=== PATIENT | female | born 1970 | race Asian ===

== ENCOUNTER 2017-03-13 12:39 | Emergency (ER) | payer BC, OTHER ==
[2017-03-13 12:44] VITALS: BP 116/60; PULSE 58; TEMP 98.4; BMI 20.9
--- NOTE | 2017-03-13 12:45 | PDOC ---
Attending Attestation - Resident Resident Name: CavazosMaikel - ED Attending Attestation I have performed the following: I have examined & evaluated the patient, The case was reviewed & discussed with the resident, I agree w/resident's findings & plan, Exceptions are as noted - HPI HPI: 03/13/17 12:48 The patient is a 46-year-old female, with a significant past medical history of palpitations, who presents to the emergency department with approximately 28 hours of intermittent palpitations. She describes them as frequent, strong, extra beats. She denies chest pain. She denies nausea, sweating, dyspnea. She denies chest pain. She denies lower extremity paresthesias. She denies lightheadedness, loss of consciousness. 03/13/17 12:49 03/13/17 13:07 - Physicial Exam PE: 03/13/17 12:49 She is well appearing Vitals noted EKG noted with frequent PVCs, in a 2:1 ratio - Medical Decision Making 03/13/17 13:38 The patient is well-appearing and in no acute distress EKG noted Labs noted Paging cardiology Discharge Disposition - Diagnosis Heart palpitations, PVCs (premature ventricular contractions) - Discharge Dispostion Disposition: HOME Condition at time of disposition: Stable - Referrals Referrals: Lionel Bauer MD [Staff Physician] - Call tomorrow - Patient Instructions Printed Discharge Instructions: DI for Arrhythmias Additional Instructions: Your EKG shows an abnormal heartbeat known as premature ventricular contractions. Many people suffer from premature ventricular contractions. We discussed your case with a tilting head band sawyer, and they feel that it is appropriate for you to be discharged home, and for you to see them as an outpatient. They would like you to start 12.5mg of Toprol XL daily. It should improve your symptoms. Return to the emergency department immediately with ANY new, persistent or worsening symptoms. You MUST call and follow up with your doctor tomorrow. Please make sure your doctor reviews the results of your emergency department evaluation.
[2017-03-13 13:12] LABS: WHITE BLOOD COUNT 6.1 K/mm3 (4.0-10.8)
[2017-03-13 13:13] LABS: BASOPHIL 1.7 % (0-2.0); EOSINOPHIL 5.1 % (0-4.5); MCH 29.4 pg (25.7-33.7); MCHC 33.1 g/dl (32.0-36.0); MEAN CELL VOLUME 88.9 fl (80-96); NEUTROPHILS 55.4 % (42.8-82.8); PLATELET COUNT 241 K/MM3 (134-434); RDW 12.1 % (11.6-15.6)
[2017-03-13 13:26] LABS: CALCIUM 8.8 mg/dl (8.4-10.2); COCKROFT - GAULT 59.3895; PHOSPHOROUS 3.5 mg/dl (2.5-4.6)
[2017-03-13 13:27] LABS: ALBUMIN 3.3 g/dl (3.5-5.0); BILIRUBIN,TOTAL 0.9 mg/dl (0.2-1.0); CPK(DFH) 53 IU/L (26-140); MAGNESIUM 1.9 mg/dL (1.8-2.4); TOT PROT 5.6 g/dl (6.4-8.3)
--- NOTE | 2017-03-13 13:28 | PDOC ---
History of Present Illness - General Chief Complaint: Irregular Heart Beat Stated Complaint: heart is beating funny Time Seen by Provider: 03/13/17 12:42 History Source: Patient Exam Limitations: No Limitations - History of Present Illness Initial Comments: 46 y/o F w/PMH of vertigo presents to ER with c/o palpitations. Palpitations began yesterday morning and have persisted into today. She denies any chest pain , pressure, or squeezing feeling. Had some nausea last night for 2 minutes but did not vomit and has not had the symptoms again. She has had her vertigo symptoms for the last 2 weeks but only when she is laying down and does not affect her in her day-to-day activities. She has increased coffee from 1 cup per day to 2 cups per day over the last week, otherwise no changes in diet. Pt only on mindi for medication for seasonal allergies, no other medications. She denies light-headedness, visual changes, hearing changes, chest pain, sob, abd pain, diarrhea, blood in stool, dysuria, blood in urine, peripheral swelling , new stresses. She does not follow with a doctor regularly and has not seen a service desk agent. Pt had similar symptoms approximately 1 year ago and they palpitations at that time passed quickly as per pt. 03/13/17 13:28 Past History - Travel Traveled outside of the country in the last 30 days: Yes If so, where?: [place] - Past Medical History Allergies/Adverse Reactions: Allergies Allergy/AdvReac Type Severity Reaction Status Date / Time No Known Allergies Allergy Verified 03/13/17 12:40 Home Medications: Ambulatory Orders Metoprolol Succinate [Toprol Xl -] 25 mg PO DAILY #7 tab.sr.24h 03/13/17 Other medical history: denies - Psycho/Social/Smoking Cessation Hx Anxiety: No Suicidal Ideation: No Smoking History: Former smoker Have you smoked in the past 12 months: No Information on smoking cessation initiated: No Hx Alcohol Use: No Drug/Substance Use Hx: No Substance Use Type: None Review of Systems - Review of Systems Able to Perform ROS?: Yes Comments:: CONSTITUTIONAL: Absent: fever, no chills, no fatigue EYES: Absent: visual changes 0ENT: Absent: hearing changes CARDIOVASCULAR: +palpitations Absent: chest pain RESPIRATORY: Absent: no SOB GI: +nausea Absent: abdominal pain, no vomiting, no diarrhea GENITOURINARY: Absent: dysuria NEURO: +dizziness Absent: headache *Physical Exam - Vital Signs Last Vital Signs Temp Pulse Resp BP Pulse Ox 98.4 F 58 L 18 116/60 100 03/13/17 12:40 03/13/17 12:40 03/13/17 12:40 03/13/17 12:40 03/13/17 12:40 - Physical Exam Comments: GENERAL: Well-appearing, well-nourished. No apparent distress. HEENT: Normocephalic, atraumatic. PERRL, EOM intact. CARDIOVASCULAR: Normal S1, S2. Regularly irregular. PULMONARY: Clear to auscultation bilaterally. ABDOMEN: Soft, non-distended, non-tender. EXTREMITIES: Normal ROM in all four extremities. No gross deformities. SKIN: Warm, dry. No rash NEUROLOGICAL: No focal neurological deficits. Heart Score/ECG Review - [facility] Comment: Sinus rhythm w/frequent PVCs. 90bpm, QTc 440 ms. PVCs occurring after every 2 beats. ED Treatment Course - LABORATORY CBC & Chemistry Diagram: 03/13/17 12:54 03/13/17 12:54 - ADDITIONAL ORDERS Additional order review: 03/13/17 12:54 RBC 4.64 MCV 88.9 MCHC 33.1 RDW 12.1 MPV 9.0 Neutrophils % 55.4 Lymphocytes % 31.4 Monocytes % 6.4 Eosinophils % 5.1 H Basophils % 1.7 Medical Decision Making - Medical Decision Making 03/13/17 13:00 EKG shows frequent PVCs, sinus rhythm at 90 bpm Will order CBC, CMP, TSH 03/13/17 13:50 CBC, CMP wnl Case discussed with cardiology (Dr. Bauer), toprol xl 25 mg qd recommended. To follow with cardio as outpatient. *DC/Admit/Observation/Transfer Diagnosis at time of Disposition: Heart palpitations - Discharge Dispostion Disposition: HOME Condition at time of disposition: Stable - Referrals Referrals: Lionel Bauer MD [Staff Physician] - - Patient Instructions Printed Discharge Instructions: DI for Palpitations Additional Instructions: Follow up with the service desk agent Dr. Bauer. You will be prescribed a medication to help with your heart palpitations called Toprol. You can follow up with Dr. Bauer for further management of the palpitations and for this medication. If your symptoms worsen come back to the ER.
[2017-03-13 13:45] LABS: TROPONIN I (DFP) < 0.03 ng/ml (0.03-0.50)
[2017-03-13 16:40] LABS: THYROID STIMULATING HORMONE 0.71 uIU/ml (0.358-3.74)
--- NOTE | 2017-03-15 08:54 | EKG ---
Test Reason : Blood Pressure : / mmHG Vent. Rate : 090 BPM Atrial Rate : 090 BPM P-R Int : 132 ms QRS Dur : 072 ms QT Int : 360 ms P-R-T Axes : 080 064 061 degrees QTc Int : 440 ms SINUS RHYTHM WITH FREQUENT PREMATURE VENTRICULAR COMPLEXES NO PREVIOUS ECGS AVAILABLE Confirmed by RANDAL CESPEDES MD ([id number]) on 03/15/2017 8:54:21 AM Referred By: KIN MARTIN Confirmed By:RANDAL CESPEDES MD
== END 2017-03-13 14:01 | disposition home or self-care (01) ==
LOC: FER 12:39
DX: R00.2 Palpitations (principal); Z87.891 Personal history of nicotine dependence
CPT/HCPCS: 36415; 80053; 82550; 83735; 84100; 84443; 84484; 85025; 93005; 99283-25

== ENCOUNTER 2017-03-24 22:29 | Emergency (ER) | payer BC, OTHER ==
--- NOTE | 2017-03-24 22:34 | PDOC ---
History of Present Illness - General Chief Complaint: Irregular Heart Beat Stated Complaint: "I FEEL MY HEART BEATING FAST" Time Seen by Provider: 03/24/17 22:31 History Source: Patient Exam Limitations: No Limitations - History of Present Illness Initial Comments: 03/24/17 22:55 This is a 46-year-old female comes in complaining of palpitations, some mild shortness of breath and numbness and tingling in her hands. Patient was here recently for similar symptoms and was noted to have some PVCs on her EKG. Patient was sent to her it field technician for follow-up she had a echo that was negative and is scheduled for a stress test next month. Patient said she has had several episodes of palpitations since being seen here in the emergency room and this one lasted longer than the other ones so she came in for evaluation. She denied any recent illness, headache, nausea or vomiting or diarrhea. PAST MEDICAL HISTORY: no significant history PAST SURGICAL HISTORY: no significant history FAMILY HISTORY: no pertinant history SOCIAL HISTORY: Pt lives with family and is employed. MEDICATIONS: reviewed ALLERGIES: As per nursing notes Review of Systems General: No fevers or chills, no weakness, no weight loss HEENT: No change in vision. No sore throat,. No ear pain CardioVascular: palpitations and shortness of breath Respiratory:No cough, or wheezing. Gastrointestinal: no nausea, vomitting, diarrhea or constipation, No rectal bleeding Genitourinary: No dysuria, hematuria, or frequency Musculoskeletal: No joint or muscle pain or swelling Neurologic: No headache, vertigo, dizziness or loss of consciousness Psychiatric: nor depression Skin: No rashes or easy bruising Endocrine: no increased thirst or abnormal weight change Allergic: no skin or latex allergy All other systems reviewed and normal Exam: General: Well-nourished well-developed individual, no acute distress HEENT: Throat: Normal, tonsils normal, no erythema or exudate Neck: Supple, no meningeal signs, no lymphadenopathy Eyes::Pupils equal reactive and round, extraocular motion intact Chest: Nontender to palpation Cardiac: S1-S2 normal, regular rate and rhythm, no murmurs rubs or gallops Respiratory: Lungs clear to auscultation bilateral Abdomen: Soft, nondistended, normal bowel sounds, nontender to palpation diffusely Extremities: Warm, dry, no cyanosis, clubbing, or edema Skin: No rashes Neuro: Alert and oriented x3, nonfocal exam, grossly intact, normal gait Psych: Normal mood and affect EKG shows normal sinus rhythm at a rate of 80, normal intervals no acute ST-T wave changes normal EKG. Assessment and plan: This is a 46-year-old female with several visits to the emergency room for palpitations. Patient did have PVCs on one visit and was referred to a it field technician who is working her up. Discussed with patient the probability that this is an anxiety component to it as well and gave her some Xanax. Patient will follow-up with her primary care doctor for additional Xanax if the Xanax is helpful. Past History - Past Medical History Allergies/Adverse Reactions: Allergies Allergy/AdvReac Type Severity Reaction Status Date / Time No Known Allergies Allergy Verified 03/13/17 12:40 Home Medications: Ambulatory Orders Metoprolol Succinate [Toprol Xl -] 25 mg PO DAILY #7 tab.sr.24h 03/13/17 - Psycho/Social/Smoking Cessation Hx Anxiety: No Suicidal Ideation: No Smoking History: Former smoker Have you smoked in the past 12 months: No Hx Alcohol Use: No Drug/Substance Use Hx: No Substance Use Type: None *DC/Admit/Observation/Transfer Diagnosis at time of Disposition: Heart palpitations, Anxiety - Discharge Dispostion Disposition: HOME Condition at time of disposition: Good Admit: No - Patient Instructions Additional Instructions: Return to the emergency department immediately with ANY new, persistent or worsening symptoms. Continue any medications as previously prescribed by your physician. You should follow up with your primary doctor as soon as possible regarding today's emergency department visit. . Please make sure your doctor reviews the results of your emergency evaluation. Thank you for coming to the Emergency Department today for your care. It was a pleasure to see you today. Please note that your evaluation is INCOMPLETE until you follow-up with your doctor.
[2017-03-24 22:36] VITALS: BP 137/85; PULSE 85; TEMP 97.6; BMI 21.2
[2017-03-24] MEDS ORDERED: ALPRAZolam 0.25 MG TABLET PO ONE (22:54)
[2017-03-24] MEDS ORDERED: ALPRAZolam 0.25 MG TABLET ONE (22:57)
--- NOTE | 2017-03-25 14:46 | EKG ---
Test Reason : Blood Pressure : / mmHG Vent. Rate : 080 BPM Atrial Rate : 080 BPM P-R Int : 132 ms QRS Dur : 072 ms QT Int : 374 ms P-R-T Axes : 073 064 056 degrees QTc Int : 431 ms POOR DATA QUALITY, INTERPRETATION MAY BE ADVERSELY AFFECTED NORMAL SINUS RHYTHM NORMAL ECG WHEN COMPARED WITH ECG OF 13-MAR-2017 12:46, PREMATURE VENTRICULAR COMPLEXES ARE NO LONGER PRESENT Confirmed by RANDAL CESPEDES MD ([id number]) on 03/25/2017 2:46:28 PM Referred By: MD JUNIOR Confirmed By:RANDAL CESPEDES MD
== END 2017-03-24 23:00 | disposition home or self-care (01) ==
LOC: FER 22:29
DX: R00.2 Palpitations (principal); F41.9 Anxiety disorder, unspecified
CPT/HCPCS: 93005; 93010; 99284-25

== ENCOUNTER 2017-11-02 21:22 | Emergency (ER) | payer BC, OTHER ==
[2017-11-02 21:30] VITALS: BP 114/80; PULSE 102; TEMP 98.7; BMI 21.0
--- NOTE | 2017-11-02 21:31 | PDOC ---
History of Present Illness - General Chief Complaint: Respiratory Stated Complaint: CAN'T TAKE FULL BREATH Time Seen by Provider: 11/02/17 21:30 Past History - Past Medical History Allergies/Adverse Reactions: Allergies Allergy/AdvReac Type Severity Reaction Status Date / Time No Known Allergies Allergy Verified 03/13/17 12:40 Home Medications: Ambulatory Orders Metoprolol Succinate [Toprol Xl -] 25 mg PO DAILY #7 tab.sr.24h 03/13/17 Cardiac Disorders: Yes (PVC) COPD: No - Suicide/Smoking/Psychosocial Hx Smoking History: Never smoked Have you smoked in the past 12 months: No Number of Cigarettes Smoked Daily: 0 Information on smoking cessation initiated: Yes 'Breaking Loose' booklet given: 11/02/17 Hx Alcohol Use: No Drug/Substance Use Hx: No Substance Use Type: None *Physical Exam - Vital Signs Last Vital Signs Temp Pulse Resp BP Pulse Ox 98.7 F 102 H 18 114/80 99 11/02/17 21:24 11/02/17 21:24 11/02/17 21:24 11/02/17 21:24 11/02/17 21:24 Medical Decision Making - Medical Decision Making 11/03/17 03:38 Pt comes with chest tightness that coincided with her high cholesterol meds. She started her cholesterol med 14 days ago. 4 days ago she felt discomfort in her chest and 2 days ago she quit taking the cholesterol pill. She comes today with continued SOB. Pt has no fever and her O2sat is excellent on RA. She has clear breath sounds and her chest xray is normal. Pt will be discharged home. She tells me that she suspects that this is a panic attack, as she has experienced this in the past and she wanted to make sure that nothing else was wrong with her. Pt appears well and she is stable for discharge. *DC/Admit/Observation/Transfer Diagnosis at time of Disposition: Anxiety - Discharge Dispostion Disposition: HOME Condition at time of disposition: Stable Admit: No - Referrals - Patient Instructions Printed Discharge Instructions: DI for Anxiety -- Adult, Yoga May Help Reduce Anxiety and Stress - Post Discharge Activity
== END 2017-11-02 22:59 | disposition home or self-care (01) ==
LOC: FER 21:22
DX: F41.9 Anxiety disorder, unspecified (principal)
CPT/HCPCS: 71046-TC; 99281-25

== ENCOUNTER 2018-07-31 19:43 | Emergency (ER) | payer BC, OTHER ==
--- NOTE | 2018-07-31 19:47 | PDOC ---
History of Present Illness - General History Source: Patient <Clarisa Gusman - Last Filed: 07/31/18 20:50> <Reyna Ryan - Last Filed: 08/01/18 03:19> - General Chief Complaint: Tachycardia Stated Complaint: FEELS HEART IS RACING AT NIGHT, DIFF SLEEPING Time Seen by Provider: 07/31/18 19:45 - History of Present Illness Initial Comments: 07/31/18 20:50 The patient is a 48-year-old female with past medical history significant for PVC presents to the emergency department with multiple complaints. The patient states she is going through menopause. The patient reports for the past 2 days shes been having irregular beat, thats been going in for a year but the last couple of months it had worsened, with an increase in the last 2 days. The patient states she feels as if she isnt getting enough air into her lungs, denies chest tightness. The patient reports shes been having the sensation that her heart is racing, patient states she continually checks her BP, thats been at her baseline. The patient states she had noticed that her heartbeat is elevated, usually in the 90s to the highest 105s. The patient reports shes been having neck tightness, with difficulty falling asleep. The patient state when she lays flat her heart is beating fast, with difficulty falling asleep. The patient reports having several episodes of heart hiccups leading her to jump her while shes lying down for the past 2 weeks. Patient endorses episode of dizziness with standing quickly for the past 2 nights. The patient reports she was told by her doctors in the past that she had elevated cholesterol, secondary to her age she didnt start medication. The patient was prescribed medication recently; she reported taking 2 medication when it was prescribed, then she forgot. The patient reports taking one yesterday denies taking any today. The patient reports for shes been having an episode of swelling and stiffness to her feet and joints of the hands when she wakes up that goes away with time. The patient states having a 2-day Holter monitoring done last year, which was significant for PVC. The patient reports having a stress test and echo done previous year with unremarkable results. Denies shortness of breath with exertion. Denies tingling. Denies excessive intake of coffee. Allergies: NKA Family history: Father [place] x2. Social history: Former smoker. (Clarisa Gusman) Past History <Clarisa Gusman - Last Filed: 07/31/18 20:50> - Past Medical History Cardiac Disorders: Yes (PVC) COPD: No - Suicide/Smoking/Psychosocial Hx Smoking History: Never smoked Have you smoked in the past 12 months: No Number of Cigarettes Smoked Daily: 0 'Breaking Loose' booklet given: 11/02/17 Hx Alcohol Use: No Drug/Substance Use Hx: No Substance Use Type: None <Reyna Ryan - Last Filed: 08/01/18 03:19> - Past Medical History Allergies/Adverse Reactions: Allergies Allergy/AdvReac Type Severity Reaction Status Date / Time No Known Allergies Allergy Verified 07/31/18 19:44 Home Medications: Ambulatory Orders Ascorbic Acid [Vitamin C] 1,000 mg PO DAILY 07/31/18 Multivitamin/Iron/Folic Acid [Centrum Women Tablet] 1 each PO DAILY 07/31/18 Review of Systems - Review of Systems Able to Perform ROS?: Yes <Clarisa Gusman - Last Filed: 07/31/18 20:50> <Reyna Ryan - Last Filed: 08/01/18 03:19> - Review of Systems Comments:: 07/31/18 20:53 CONSTITUTIONAL: Absent: fever, no chills, no fatigue EYES: Absent: visual changes ENT: Absent: ear pain, no sore throat CARDIOVASCULAR: (+) racing heart. Absent: chest pain, no palpitations, chest tightness. RESPIRATORY: Absent: cough, no SOB GI: Absent: abdominal pain, no nausea, no vomiting, no constipation, no diarrhea GENITOURINARY: Absent: dysuria, no frequency, no hematuria MUSKULOSKELETAL: Absent: back pain, no arthralgia, no myalgia SKIN: Absent: rash NEURO: (+)dizziness. Absent: headache (Clarisa Gusman) *Physical Exam <Clarisa Gusman - Last Filed: 07/31/18 20:50> <Reyna Ryan - Last Filed: 08/01/18 03:19> - Vital Signs Last Vital Signs Temp Pulse Resp BP Pulse Ox 98.4 F 77 18 126/77 99 07/31/18 19:43 07/31/18 19:43 07/31/18 19:43 07/31/18 19:43 07/31/18 19:43 - Physical Exam Comments: 07/31/18 20:52 GENERAL: The patient is awake, alert, and fully oriented, in no acute distress. HEAD: Normal with no signs of trauma. ENT: Ears normal, nares patent, oropharynx clear without exudates. (+)dry mucous membranes. NECK: Normal range of motion, supple without lymphadenopathy, JVD, or masses. LUNGS: Breath sounds equal, clear to auscultation bilaterally. No wheeze/ crackles. HEART: Regular rate and rhythm, normal S1 and S2 without murmur or rub. ABDOMEN: Soft/nontender/nondistended. BS wnl. No guarding or rebound. No palpable masses. No hepatosplenomegaly. (Clarisa Gusman) ED Treatment Course - LABORATORY CBC & Chemistry Diagram: 07/31/18 20:25 07/31/18 20:27 <Clarisa Gusman - Last Filed: 07/31/18 20:50> - LABORATORY CBC & Chemistry Diagram: 07/31/18 20:25 07/31/18 20:27 <Reyna Ryan - Last Filed: 08/01/18 03:19> - ADDITIONAL ORDERS Additional order review: Laboratory Results 07/31/18 20:27 Sodium 137 Potassium 4.1 Chloride 106 Carbon Dioxide 25 Anion Gap 6 L BUN 11 Creatinine 0.8 Creat Clearance w eGFR > 60 Random Glucose 122 H D Calcium 8.6 Total Bilirubin 0.6 AST 17 ALT 11 Alkaline Phosphatase 40 Total Protein 5.9 L Albumin 3.3 L TSH 1.02 07/31/18 20:25 RBC 4.16 MCV 91.2 MCHC 33.7 RDW 12.0 MPV 9.1 Neutrophils % 52.1 Lymphocytes % 34.1 Monocytes % 7.9 Eosinophils % 4.6 H Basophils % 1.3 Medical Decision Making <Clarisa Gusman - Last Filed: 07/31/18 20:50> <Reyan Ryan - Last Filed: 08/01/18 03:19> - Medical Decision Making Documentation has been prepared under my direction and personally reviewed by me in its entirety. I attest that this documented accurately reflects all work, treatment, procedures and medical decision making performed by me. As noted above, this 48-year-old woman presents with several complaints, most notably episodes of palpitations, especially at night after she goes to bed. Apparently, the patient has had similar symptoms approximately a year ago during which she had Holter monitoring. Workup reportedly was negative. She describes no new chest pain/pressure, shortness of breath or other associated symptoms. No history of thyroid abnormalities or other endocrine issues. Exam as noted. 12-lead electrocardiogram performed and interpreted by me: normal sinus rhythm at 74 bpm; axis, intervals and wave forms are all normal. No evidence of arrhythmia, missed beats or skipped beats. Basic labs of CBC and comprehensive chemistry profile performed: CBC is essentially normal. Other than mildly elevated random glucose (122), only other abnormality is mildly decreased total protein and albumin levels. TSH was sent and this was also normal. Results discussed with the patient. Although no significant abnormalities were found, patient was advised that she needs further workup by her general medical doctor. Patient should follow-up with her general medical doctor for further workup: It was emphasized that she needs further cardiac monitoring such as Holter placement. Patient understands this and states that she will follow-up with her general doctor. Also, she had concerns that symptoms are related to perimenopausal hormonal changes. She was advised to follow-up with her engineering program analyst regarding this concern. (Reyna Ryan) *DC/Admit/Observation/Transfer <Clarisa Gusman - Last Filed: 07/31/18 20:50> <Reyna Ryan - Last Filed: 08/01/18 03:19> Diagnosis at time of Disposition: Heart palpitations - Discharge Dispostion Disposition: HOME Condition at time of disposition: Stable - Patient Instructions Printed Discharge Instructions: DI for Palpitations Additional Instructions: Drink plenty of water as discussed Eat regular, balanced meals as discussed Continue to avoid caffeinated foods/beverages Follow-up with your doctor within the next 3-4 days Return to ER immediately if you have more frequent palpitations/chest pressure/ shortness of breath Consider gynecological follow-up as discussed - Attestations Scribe Attestion: 07/31/18 20:53 Documentation prepared by Clarisa Gusman, acting as medical record librarian for Reyna Ryan MD. (Clarisa Gumsan)
[2018-07-31 20:29] VITALS: BP 126/77; PULSE 77; TEMP 98.4; BMI 21.0
[2018-07-31 21:04] LABS: ALBUMIN 3.3 g/dl (3.5-5.0); ALK PHOS 40 U/L (32-92); ANION GAP 6 MMOL/L (8-16); BILIRUBIN,TOTAL 0.6 mg/dl (0.2-1.0); BLOOD UREA NITROGEN 11 mg/dl (7-18); CALCIUM 8.6 mg/dl (8.4-10.2); CHLORIDE 106 mmol/L (98-107); CO2 25 mmol/L (22-28); CREATININE 0.8 mg/dl (0.6-1.3); GLUCOSE,RANDOM 122 mg/dl (74-106); POTASSIUM 4.1 mmol/L (3.5-5.1); SGOT/AST 17 U/L (10-42); SGPT/ALT 11 U/L (10-40); SODIUM 137 mmol/L (136-145); TOT PROT 5.9 g/dl (6.4-8.3)
[2018-07-31 21:04] LABS: HEMOGLOBIN 12.8 GM/dl (10.7-15.3); MEAN CELL VOLUME 91.2 fl (80-96); WHITE BLOOD COUNT 6.3 K/mm3 (4.0-10.8)
[2018-07-31 21:06] LABS: BASO % 1.3 % (0-2.0); EOS % 4.6 % (0-4.5); LYMPH % 34.1 % (8-40); MCH 30.8 pg (25.7-33.7); MCHC 33.7 g/dl (32.0-36.0); MEAN PLT VOLUME 9.1 fl (7.5-11.1); MONO % 7.9 % (3.8-10.2); NEUT % 52.1 % (42.8-82.8); PLATELET COUNT 243 K/MM3 (134-434); RBC 4.16 M/mm3 (3.60-5.2)
--- NOTE | 2018-08-06 17:37 | EKG ---
Test Reason : Blood Pressure : / mmHG Vent. Rate : 074 BPM Atrial Rate : 074 BPM P-R Int : 132 ms QRS Dur : 076 ms QT Int : 386 ms P-R-T Axes : 047 064 054 degrees QTc Int : 428 ms NORMAL SINUS RHYTHM NORMAL ECG WHEN COMPARED WITH ECG OF 24-MAR-2017 22:35, NO SIGNIFICANT CHANGE WAS FOUND Confirmed by SMITA ALCANTARA MD ([id number]) on 08/06/2018 5:36:35 PM Referred By: MAK ARRIOLA Confirmed By:SMITA ALCANTARA MD
== END 2018-07-31 21:37 | disposition home or self-care (01) ==
LOC: FER 19:43
DX: R00.2 Palpitations (principal); I49.3 Ventricular premature depolarization
CPT/HCPCS: 36415; 80053; 84443; 85025; 93005; 99283-25

== ENCOUNTER 2019-11-07 01:08 | Emergency (ER) | payer BC, OTHER ==
[2019-11-07] MEDS ORDERED: SILVER NITRATE 75% APPLIC STCK 1 PKT EACH ONE (01:16)
[2019-11-07 01:18] VITALS: BP 129/94; PULSE 75; BMI 21.9
--- NOTE | 2019-11-07 02:10 | PDOC ---
History of Present Illness - General Chief Complaint: Nasal Bleeding Stated Complaint: bloody nose x 20 minutes for past 3 days Time Seen by Provider: 11/07/19 01:14 - History of Present Illness Initial Comments: 11/07/19 02:11 nose bleeding x 3 days Is this a multiple visit Asthma Patient?: No Timing/Duration: other (3 days) Severity: moderate Associated Symptoms: denies: fever/chills Past History - Past Medical History Allergies/Adverse Reactions: Allergies Allergy/AdvReac Type Severity Reaction Status Date / Time No Known Allergies Allergy Verified 11/07/19 01:11 Home Medications: Ambulatory Orders Multivitamin/Iron/Folic Acid [Centrum Women Tablet] 1 each PO DAILY 07/31/18 Rosuvastatin Calcium [Crestor] 5 mg PO DAILY 11/07/19 Cardiac Disorders: Yes (PVC) COPD: No Hypercholesterolemia: Yes Psychiatric Problems: Yes (anxiety) - Psycho Social/Smoking Cessation Hx Smoking History: Never smoked Have you smoked in the past 12 months: No Number of Cigarettes Smoked Daily: 0 'Breaking Loose' booklet given: 11/02/17 Hx Alcohol Use: Yes (RARE) Drug/Substance Use Hx: No Substance Use Type: None Review of Systems - Review of Systems All Other Systems: Reviewed and Negative *Physical Exam - Physical Exam General Appearance: Yes: Nourished, Appropriately Dressed HEENT: positive: Other (bleeding from anterior septum) Respiratory/Chest: positive: Normal Breath Sounds Musculoskeletal: positive: Normal Inspection Extremity: positive: Normal Capillary Refill Integumentary: positive: Normal Color Medical Decision Making - Medical Decision Making 11/07/19 02:12 epistaxis resolved with ed mgmt Discharge - Discharge Information Problems reviewed: Yes Clinical Impression/Diagnosis: Epistaxis Condition: Stable - Admission No - Follow up/Referral - Patient Discharge Instructions Patient Printed Discharge Instructions: DI for Nosebleed - Post Discharge Activity
== END 2019-11-07 02:20 | disposition home or self-care (01) ==
LOC: FER 01:08
DX: R04.0 Epistaxis (principal); F41.9 Anxiety disorder, unspecified; E78.00 Pure hypercholesterolemia, unspecified; I51.9 Heart disease, unspecified
CPT/HCPCS: 99281-25

== ENCOUNTER 2021-10-21 08:47 | Emergency (ER) | payer BC, OTHER ==
[2021-10-21 08:55] VITALS: BP 125/77; PULSE 96; TEMP 99.1; BMI 19.2
[2021-10-21 09:51] LABS: EPITHELIAL CELLS MODERATE /hpf
== END 2021-10-21 11:25 | disposition home or self-care (01) ==
LOC: FER 08:47
DX: R31.9 Hematuria, unspecified (principal); R80.9 Proteinuria, unspecified
CPT/HCPCS: 76775-TC; 81003; 81015; 87086; 99284-25

== ENCOUNTER 2022-08-05 00:03 | Emergency (ER) | payer SELFPAY ==
[2022-08-05 00:12] VITALS: BP 124/87; PULSE 79; RESP 18; TEMP 97.9; BMI 21.7
== END 2022-08-05 01:15 | disposition home or self-care (01) ==
LOC: FER 00:03
DX: H53.412 Scotoma involving central area, left eye (principal)
CPT/HCPCS: 82962; 93005; 99284-25